=== PATIENT | male | born 1940 | race Two or more races ===

== ENCOUNTER 2025-05-06 09:09 | Outpatient (CLI) | payer OTHER | END 2025-05-06 09:13 | disposition home or self-care (01) | LOC: TOM 09:09 | PROVIDERS: ATTEND Internal Medicine | DX: R19.5 Other fecal abnormalities (principal); D64.9 Anemia, unspecified ==

== ENCOUNTER 2025-07-13 13:51 | Emergency (ER) | payer OTHER ==
[~2025-07-13] VITALS: Ht 170.2 cm; Wt 65.8 kg
[2025-07-13] MEDS ORDERED: TOPROL XL25 M1 (14:00)
[2025-07-13] MEDS ORDERED: ATORVASTATIN CA20 MG PO (14:00)
[2025-07-13] MEDS ORDERED: DILTIAZEM ER120 M2 PO (14:01)
[2025-07-13] MEDS ORDERED: ELIQUIS5 MG PO (14:01)
[2025-07-13] MEDS ORDERED: COZAAR100 MG PO (14:01)
== END 2025-07-13 15:06 | disposition home or self-care (01) ==
LOC: ER 13:51
DX: M54.50 Low back pain, unspecified (principal); I10 Essential (primary) hypertension